=== PATIENT | male | born 1965 | race Caucasian/White ===

== ENCOUNTER → 2016-12-14 | Outpatient (CLI) | payer BC ==
[2016-12-14 08:59] LABS: ABSOLUTE EOSINOPHILS # (AUTO) 0.3 10^3/uL (0.0-0.6); ABSOLUTE MONOCYTES (AUTO) 0.6 10^3/uL (0.1-1.4); ABSOLUTE NEUT (AUTO) 4.9 10^3/uL (1.7-8.2); BASOPHILS % (AUTO) 0.4 % (0-2); EOSINOPHILS % (AUTO) 3.8 % (0-6); HEMATOCRIT 44.8 % (37.9-51.0); HEMOGLOBIN 15.1 g/dL (13.5-17.0); HGB HCT DIFFERENCE 0.5; LYMPHOCYTES % (AUTO) 25.7 % (13-45); MEAN CORPUSCULAR HEMOGLOBIN 30.7 pg (27.0-33.4); MEAN CORPUSCULAR HGB CONC 33.8 g/dL (32.0-36.0); MEAN CORPUSCULAR VOLUME 91 fl (80-97); MONOCYTES % (AUTO) 7.1 % (3-13); RED BLOOD COUNT 4.94 10^6/uL (4.35-5.55); RED CELL DISTRIBUTION WIDTH 13.2 % (11.5-14.0); WHITE BLOOD COUNT 7.8 10^3/uL (4.0-10.5)
[2016-12-14 09:28] LABS: ALANINE AMINOTRANSFERASE 35 U/L (21-72); ALBUMIN 4.1 g/dL (3.5-5.0); ALKALINE PHOSPHATASE 77 U/L (38-126); ANION GAP 10 (5-19); ASPARTATE AMINO TRANSFERASE 27 U/L (17-59); BILIRUBIN,DIRECT 0.3 mg/dL (0.0-0.4); BILIRUBIN,TOTAL 0.8 mg/dL (0.2-1.3); BLOOD UREA NITROGEN 14 mg/dL (7-20); CALCIUM 9.8 mg/dL (8.4-10.2); CARBON DIOXIDE 28 mmol/L (22-30); CHLORIDE 105 mmol/L (98-107); CHOLESTEROL 157.25 mg/dL (0-200); Direct HDL 37 mg/dL (>40); GLUCOSE 98 mg/dL (75-110); POTASSIUM 4.8 mmol/L (3.6-5.0); SODIUM 142.7 mmol/L (137-145); TOTAL PROTEIN 6.7 g/dL (6.3-8.2); TRIGLYCERIDES 131 mg/dL (<150)
[2016-12-14 09:39] LABS: DIRECT LDL 104 mg/dL (<100)
[2016-12-15 10:26] LABS: PROSTATE SPECIFIC ANTIGEN 1.7 ng/mL (0.0-4.0); PSA % FREE 22.4 % (.); PSA FREE 0.38 ng/mL; VITAMIN D 25-HYDROXY 37.1 ng/mL (30.0-100.0)
== END ==
LOC: OD 07:04
PROVIDERS: ATTEND Internal Medicine
DX: Z13.220 Encounter for screening for lipoid disorders (principal); Z13.1 Encounter for screening for diabetes mellitus; Z12.5 Encounter for screening for malignant neoplasm of prostate; Z13.21 Encounter for screening for nutritional disorder; Z13.29 Encounter for screening for other suspected endocrine disorder; R73.01 Impaired fasting glucose; Z79.899 Other long term (current) drug therapy
CPT/HCPCS: 36415; 80053; 80061; 82306; 83036; 84154; 84443; 85025

== ENCOUNTER 2019-08-25 08:48 | Emergency (ER) | payer BC ==
[2019-08-25 09:33] LABS: APPEARANCE,URINE CLEAR; BILIRUBIN,URINE NEGATIVE (NEGATIVE); COLOR,URINE YELLOW; GLUCOSE, URINE NEGATIVE (NEGATIVE); KETONES,URINE NEGATIVE (NEGATIVE); LEUKOCYTE ESTERASE,URINE NEGATIVE (NEGATIVE); NITRITE,URINE NEGATIVE (NEGATIVE); PROTEIN,URINE NEGATIVE (NEGATIVE); UROBILINOGEN,URINE NEGATIVE mg/dL (<2.0)
[2019-08-25 09:37] LABS: ABSOLUTE BASOPHILS # (AUTO) 0.1 10^3/uL (0.0-0.2); ABSOLUTE EOSINOPHILS # (AUTO) 0.3 10^3/uL (0.0-0.6); ABSOLUTE LYMPHOCYTES (AUTO) 2.1 10^3/uL (0.5-4.7); ABSOLUTE MONOCYTES (AUTO) 0.7 10^3/uL (0.1-1.4); ABSOLUTE NEUT (AUTO) 6.9 10^3/uL (1.7-8.2); BASOPHILS % (AUTO) 0.5 % (0-2); EOSINOPHILS % (AUTO) 2.9 % (0-6); HEMATOCRIT 43.6 % (37.9-51.0); HEMOGLOBIN 15.4 g/dL (13.5-17.0); LYMPHOCYTES % (AUTO) 20.6 % (13-45); MEAN CORPUSCULAR HEMOGLOBIN 31.7 pg (27.0-33.4); MEAN CORPUSCULAR HGB CONC 35.3 g/dL (32.0-36.0); MEAN CORPUSCULAR VOLUME 90 fl (80-97); MONOCYTES % (AUTO) 7.2 % (3-13); PLATELET COUNT 302 10^3/uL (150-450); RED BLOOD COUNT 4.86 10^6/uL (4.35-5.55); RED CELL DISTRIBUTION WIDTH 13.4 % (11.5-14.0); SEGMENTED NEUTROPHILS % (AUTO) 68.8 % (42-78); TOTAL CELLS COUNTED % (AUTO) 100 %; WHITE BLOOD COUNT 10.1 10^3/uL (4.0-10.5)
[2019-08-25 09:55] LABS: ALBUMIN 4.3 g/dL (3.5-5.0); ALKALINE PHOSPHATASE 73 U/L (38-126); ANION GAP 5 (5-19); ASPARTATE AMINO TRANSFERASE 22 U/L (17-59); BILIRUBIN,TOTAL 0.5 mg/dL (0.2-1.3); BLOOD UREA NITROGEN 16 mg/dL (7-20); CALCIUM 9.6 mg/dL (8.4-10.2); CARBON DIOXIDE 30 mmol/L (22-30); CHLORIDE 105 mmol/L (98-107); GLUCOSE 79 mg/dL (75-110); POTASSIUM 4.4 mmol/L (3.6-5.0)
--- NOTE | 2019-08-25 10:21 | ER Document Report ---
ED General - General Chief Complaint: Diarrhea Stated Complaint: BODY ACHES Time Seen by Provider: 08/25/19 09:24 Primary Care Provider: GHASSAN KEYS MD [Primary Care Provider] - Follow up as needed TRAVEL OUTSIDE OF THE [place] IN LAST 30 DAYS: No - Related Data Allergies/Adverse Reactions: No Known Allergies Allergy (Verified 10/06/15 11:02) Home Medications: Zocor. Pantoprozole Past Medical History - Social History Smoking Status: Former Smoker Chew tobacco use (# tins/day): No Frequency of alcohol use: Occasional Drug Abuse: None Patient has homicidal ideation: No - Past Medical History Cardiac Medical History: Denies: Hx Coronary Artery Disease, Hx Heart Attack, Hx Hypertension Pulmonary Medical History: Denies: Hx Asthma, Hx Bronchitis, Hx COPD, Hx Pneumonia Neurological Medical History: Denies: Hx Cerebrovascular Accident, Hx Seizures Musculoskeletal Medical History: Denies Hx Arthritis - Immunizations Hx Diphtheria, Pertussis, Tetanus Vaccination: Yes Physical Exam - Vital signs Vitals: Temp Pulse Resp BP Pulse Ox 97.7 F 94 18 158/98 H 99 08/25/19 08:49 08/25/19 08:49 08/25/19 08:49 08/25/19 08:49 08/25/19 08:49 Course - Vital Signs Vital signs: Temp Pulse Resp BP Pulse Ox 97.7 F 94 18 158/98 H 99 08/25/19 09:01 08/25/19 08:49 08/25/19 08:49 08/25/19 08:49 08/25/19 08:49 - Laboratory Result Diagrams: 08/25/19 09:15 08/25/19 09:15 Discharge - Discharge Clinical Impression: Diarrhea Condition: Stable Disposition: HOME, SELF-CARE Additional Instructions: Diarrhea Diarrhea means frequent, watery stools. There are many causes. Any problem that keeps the intestinal tract from absorbing water from the stool can lead to diarrhea. A sudden new diarrhea problem is usually caused by a virus, food sensitivity, toxic bacteria, or drugs. In this case, we expect the problem to go away soon. Testing is done only if you seem seriously ill from the diarrhea. If you have chronic diarrhea, or diarrhea that keeps coming back, we need to find out why. Chronic diarrhea can be due to inflammation of the bowels such as Crohn's disease or ulcerative colitis, food sensitivity such as intolerance to lactose or wheat protein, irritable bowel syndrome, and other problems. If your diarrhea is a significant problem but it's not clear why you have it, we'll refer you to a specialist for further testing. During an episode of diarrhea, drink small amounts (two to six ounces) of clear liquids (soft drinks, sport drinks, herb teas, broth, etc). Take fluids frequently to prevent dehydration. It's usually not a problem to take mild anti- diarrhea medication such as Kaopectate or Pepto-Bismol. As the diarrhea eases, advance to small amounts of bland food (mashed potato, toast) for 24 hours. Call the physician if blood appears in your vomit or stool, if vomiting lasts longer than 24 hours, if the abdominal pain worsens or becomes localized to one area, if you develop high fever, or if you become lightheaded and weak. Recommend increase hydration. Recommend taking Tylenol if needed for any muscle aches. Also recommend [id number] Kaopectate if needed for any diarrhea. Referrals: GHASSAN KEYS MD [Primary Care Provider] - Follow up as needed
--- NOTE | 2019-08-25 10:30 | ER Document Report ---
Entered by SHAE PORTER SCRIBE 08/25/19 1022 Acting as scribe for:WILMER ARORA MD ED General - General Chief Complaint: Diarrhea Stated Complaint: BODY ACHES Time Seen by Provider: 08/25/19 09:24 Primary Care Provider: GHASSAN KEYS MD [Primary Care Provider] - Follow up as needed Information source: Patient Notes: This 53-year-old otherwise healthy male presents to the emergency department complaining of diarrhea that began two days ago. Patient explains that two days ago he ate at [employer] and "9 hours later" had 2 episodes of diarrhea. Pat ient states that last night he had two beers in the evening. Patient said that his girlfriend wanted him to come get checked in the emergency department for covid-19. Patient reports being mask compliant at both jobs and states that he is not suspicious of having covid-19. Patient denies fever. TRAVEL OUTSIDE OF THE [place] IN LAST 30 DAYS: No - Related Data Allergies/Adverse Reactions: No Known Allergies Allergy (Verified 10/06/15 11:02) Home Medications: Zocor. 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 denies: Fever EENT: No symptoms reported Cardiovascular: No symptoms reported Respiratory: No symptoms reported Gastrointestinal: See HPI, Diarrhea Genitourinary: No symptoms reported Male Genitourinary: No symptoms reported Musculoskeletal: No symptoms reported Skin: No symptoms reported Hematologic/Lymphatic: No symptoms reported Neurological/Psychological: No symptoms reported -: Yes All other systems reviewed and negative Physical Exam - Vital signs Vitals: Temp Pulse Resp BP Pulse Ox 97.7 F 94 18 158/98 H 99 08/25/19 08:49 08/25/19 08:49 08/25/19 08:49 08/25/19 08:49 08/25/19 08:49 - Notes Notes: Physical Exam: General: Alert, appears well. HEENT: Normocephalic. Atraumatic. PERRL. Extraocular movements intact. Oropharynx clear. Neck: Supple. Non-tender. Respiratory: No respiratory distress. Clear and equal breath sounds bilaterally. Cardiovascular: Regular rate and rhythm. Abdominal: Normal Inspection. Non-tender. No distension. Normal Bowel Sounds. Back: No gross abnormalities. Extremities: Moves all four extremities. Upper extremities: Normal inspection. Normal ROM. Lower extremities: Normal inspection. No edema. Normal ROM. Neurological: Normal cognition. AAOx4. Normal speech. Psychological: Normal affect. Normal Mood. Skin: Warm. Dry. Normal color. Course - Re-evaluation Re-evalutation: 08/25/19 10:26 Patient resting comfortably not showing any signs of distress at this time. 08/25/19 10:28 Patient reports he has not had any known exposure to COVID-19 with any family or anyone on his worksite. Patient reports that he has kept his stents distancing as well as he wears his mask when he is outside of the home environment. I explained the patient that he did not meet any criteria that or any concern that I have for him to have COVID-19 at this time therefore no testing was done. - Vital Signs Vital signs: Temp Pulse Resp BP Pulse Ox 97.7 F 94 18 158/98 H 99 08/25/19 09:01 08/25/19 08:49 08/25/19 08:49 08/25/19 08:49 08/25/19 08:49 08/25/19 10:26 Vital signs stable patient does have systolic diastolic hypertension. - Laboratory Result Diagrams: 08/25/19 09:15 08/25/19 09:15 Laboratory results interpreted by me: 08/25/19 10:27 Laboratory results within normal limits no signs of infection dehydration leukocytosis or any urinary tract problems. Discharge - Discharge Clinical Impression: Diarrhea, Elevated blood pressure reading without diagnosis of hypertension Condition: Stable Disposition: HOME, SELF-CARE Additional Instructions: Diarrhea Diarrhea means frequent, watery stools. There are many causes. Any problem that keeps the intestinal tract from absorbing water from the stool can lead to diarrhea. A sudden new diarrhea problem is usually caused by a virus, food sensi tivity, toxic bacteria, or drugs. In this case, we expect the problem to go away soon. Testing is done only if you seem seriously ill from the diarrhea. If you have chronic diarrhea, or diarrhea that keeps coming back, we need to find out why. Chronic diarrhea can be due to inflammation of the bowels such as Crohn's disease or ulcerative colitis, food sensitivity such as intolerance to lactose or wheat protein, irritable bowel syndrome, and other problems. If your diarrhea is a significant problem but it's not clear why you have it, we'll refer you to a specialist for further testing. During an episode of diarrhea, drink small amounts (two to six ounces) of clear liquids (soft drinks, sport drinks, herb teas, broth, etc). Take fluids frequently to prevent dehydration. It's usually not a problem to take mild anti- diarrhea medication such as Kaopectate or Pepto-Bismol. As the diarrhea eases, advance to small amounts of bland food (mashed potato, toast) for 24 hours. Call the physician if blood appears in your vomit or stool, if vomiting lasts longer than 24 hours, if the abdominal pain worsens or becomes localized to one area, if you develop high fever, or if you become lightheaded and weak. Recommend increase hydration. Recommend taking Tylenol if needed for any muscle aches. Also recommend [id number] Kaopectate if needed for any diarrhea. Forms: Elevated Blood Pressure, Return to Work Referrals: GHASSAN KEYS MD [Primary Care Provider] - Follow up as needed I personally performed the services described in the documentation, reviewed and edited the documentation which was dictated to the scribe in my presence, and it accurately records my words and actions.
[2019-08-25 10:35] VITALS: BP 174/88
== END 2019-08-25 10:33 | disposition home or self-care (01) ==
LOC: ER 08:48
DX: R19.7 Diarrhea, unspecified (principal); R03.0 Elevated blood-pressure reading, without diagnosis of hypertension; M79.10 Myalgia, unspecified site
CPT/HCPCS: 36415; 80053; 81001; 85025; 99284